=== PATIENT | female | born 1945 | race Caucasian/White ===

== ENCOUNTER → 2016-11-28 | Outpatient (CLI) | payer OTHER ==
[2016-11-28 12:32] LABS: Urine Bilirubin Negative (Negative); Urine Blood Negative /uL (Negative); Urine Color Yellow (Yellow); Urine Glucose Normal (Normal); Urine Ketone Negative (Negative); Urine Nitrite Negative (Negative); Urine Urobilinogen Normal (Negative)
[2016-11-28 12:36] LABS: Basophils # (auto) 0.1 uL; Basophils % (auto) 0.8 % (0.0-2.0); Eosinophils # (auto) 0.1 uL; Eosinophils % (auto) 1.5 % (0.0-7.0); Hematocrit 44.6 % (36.0-46.0); Hemoglobin 15.1 g/dL (12.2-16.2); Lymphocytes # (auto) 1.4 uL; Lymphocytes % (auto) 20.7 % (10.0-50.0); Mean Corpuscular Hemoglobin 30.5 pg (28.0-32.0); Mean Corpuscular Hgb Conc. 33.8 g/dL (32.0-36.0); Mean Corpuscular Volume 90.1 fL (80.0-100.0); Monocytes # (auto) 0.3 uL; Monocytes % (auto) 4.7 % (0.0-12.0); Neutrophils # (auto) 4.8 uL; Neutrophils % (auto) 72.3 % (37.0-80.0); Nucleated Red Blood Cells % 0.1 %; Platelet Count (auto) 410 10^3/uL (140-450); Red Cell Distribution Width 14.8 % (11.8-14.3); White Blood Cell 6.6 10^3/uL (4.4-10.8)
[2016-11-28 13:04] LABS: Albumin 4.2 g/dL (3.4-5.0); BUN/Creatinine Ratio 21.1; Bilirubin, Direct 0.2 mg/dL (0-0.2); Bilirubin, Total 0.5 mg/dL (0.2-1.0); Calcium 10.3 mg/dL (8.5-10.1); Total Protein 8.6 g/dL (6.4-8.2)
== END | disposition home or self-care (01) ==
LOC: LAB 08:25
PROVIDERS: ATTEND Internal Medicine Cardiovascular Disease
DX: I10 Essential (primary) hypertension (principal); E78.00 Pure hypercholesterolemia, unspecified; K74.1 Hepatic sclerosis; E11.9 Type 2 diabetes mellitus without complications; E03.9 Hypothyroidism, unspecified; D64.9 Anemia, unspecified; E55.9 Vitamin D deficiency, unspecified; N39.0 Urinary tract infection, site not specified
CPT/HCPCS: 36415; 80048; 80061; 80076; 81003; 82306; 83036; 84439; 84443; 85025; 87086

== ENCOUNTER → 2017-05-26 | Outpatient (CLI) | payer OTHER ==
[~2017-05-26] VITALS: Ht 170.2 cm; Wt 104.3 kg
== END | disposition home or self-care (01) ==
LOC: Rad HDHVI 09:21
PROVIDERS: ATTEND Internal Medicine Cardiovascular Disease
DX: I10 Essential (primary) hypertension (principal); E78.2 Mixed hyperlipidemia; E11.9 Type 2 diabetes mellitus without complications; E78.00 Pure hypercholesterolemia, unspecified
CPT/HCPCS: 78452; 93017; 93306; 96374; A9500

== ENCOUNTER → 2018-05-17 | Outpatient (CLI) | payer OTHER | END | disposition home or self-care (01) | LOC: Rad HDHVI 10:47 | PROVIDERS: ATTEND Internal Medicine Cardiovascular Disease | DX: I47.1 Supraventricular tachycardia (principal); E78.00 Pure hypercholesterolemia, unspecified; R00.2 Palpitations; I10 Essential (primary) hypertension | CPT/HCPCS: 93306 ==

== ENCOUNTER → 2018-05-21 | Outpatient (CLI) | payer OTHER ==
[~2018-05-21] VITALS: Ht 170.2 cm; Wt 90.7 kg
[2018-05-21 12:43] LABS: Basophils # (auto) 0 uL; Basophils % (auto) 0.6 % (0.0-2.0); Eosinophils # (auto) 0.2 uL; Eosinophils % (auto) 2.8 % (0.0-7.0); Hematocrit 43.9 % (36.0-46.0); Hemoglobin 14.7 g/dL (12.2-16.2); Lymphocytes # (auto) 1.1 uL; Lymphocytes % (auto) 16.4 % (10.0-50.0); Mean Corpuscular Hemoglobin 29.8 pg (28.0-32.0); Mean Corpuscular Hgb Conc. 33.5 g/dL (32.0-36.0); Mean Corpuscular Volume 89.1 fL (80.0-100.0); Monocytes # (auto) 0.4 uL; Monocytes % (auto) 5.8 % (0.0-12.0); Neutrophils % (auto) 74.4 % (37.0-80.0); Nucleated Red Blood Cells % 0.3 %; Platelet Count (auto) 394 10^3/uL (140-450); Red Blood Cells 4.92 10^6/uL (4.0-5.20); Red Cell Distribution Width 15.6 % (11.8-14.3); White Blood Cell 6.7 10^3/uL (4.4-10.8)
[2018-05-21 13:34] LABS: Free T4 (Free Thyroxine) 1.34 ng/dL (0.89-1.76)
[2018-05-21 13:46] LABS: Potassium 3.3 mmol/L (3.5-5.1)
[2018-05-21 14:02] LABS: Albumin 4.1 g/dL (3.4-5.0); BUN/Creatinine Ratio 21.5; Bilirubin, Total 1.2 mg/dL (0.2-1.0); Calcium 10.4 mg/dL (8.5-10.1); Total Protein 7.8 g/dL (6.4-8.2)
== END | disposition home or self-care (01) ==
LOC: Rad HDHVI 08:29
PROVIDERS: ATTEND Internal Medicine Cardiovascular Disease
DX: E11.9 Type 2 diabetes mellitus without complications (principal); E03.9 Hypothyroidism, unspecified; E55.9 Vitamin D deficiency, unspecified; D51.9 Vitamin B12 deficiency anemia, unspecified; I10 Essential (primary) hypertension; I47.1 Supraventricular tachycardia; E78.00 Pure hypercholesterolemia, unspecified
CPT/HCPCS: 36415; 78452; 80053; 80061; 82306; 82607; 83036; 84439; 84443; 85025; 93017; 96374; A9500; 87086

== ENCOUNTER → 2018-07-30 | Outpatient (CLI) | payer OTHER | END | disposition home or self-care (01) | LOC: Rad HDHVI 10:34 | PROVIDERS: ATTEND Internal Medicine Cardiovascular Disease | DX: I25.10 Atherosclerotic heart disease of native coronary artery without angina pectoris (principal); R07.9 Chest pain, unspecified | CPT/HCPCS: 71250 ==

== ENCOUNTER → 2019-01-30 | Outpatient (CLI) | payer OTHER | END | disposition home or self-care (01) | LOC: Rad HDHVI 09:54 | PROVIDERS: ATTEND Internal Medicine Cardiovascular Disease | DX: I67.82 Cerebral ischemia (principal); R51 Headache; R06.02 Shortness of breath; I10 Essential (primary) hypertension | CPT/HCPCS: 70450 ==

== ENCOUNTER → 2022-01-24 | Outpatient (CLI) | payer OTHER | END | disposition home or self-care (01) | LOC: Rad HDHVI 12:59 | PROVIDERS: ATTEND Internal Medicine Cardiovascular Disease | DX: I07.1 Rheumatic tricuspid insufficiency (principal); I10 Essential (primary) hypertension; R00.2 Palpitations | CPT/HCPCS: 93306 ==

== ENCOUNTER → 2022-02-01 | Outpatient (CLI) | payer OTHER ==
[~2022-02-01] VITALS: Ht 170.2 cm; Wt 86.2 kg
== END | disposition home or self-care (01) ==
LOC: Rad HDHVI 09:23
PROVIDERS: ATTEND Internal Medicine Cardiovascular Disease
DX: R07.89 Other chest pain (principal); R00.2 Palpitations; I10 Essential (primary) hypertension; E78.00 Pure hypercholesterolemia, unspecified; Z82.49 Family history of ischemic heart disease and other diseases of the circulatory system; Z79.899 Other long term (current) drug therapy
CPT/HCPCS: 78452; 93017; 96374; A9500

== ENCOUNTER 2023-09-13 09:04 | Emergency (ER) | payer OTHER ==
[~2023-09-13] VITALS: Ht 170.2 cm; Wt 83.7 kg
[2023-09-13 10:42] VITALS: BP 134/96; PULSE 107; RESP 16; TEMP 98.7; O2SAT 100
== END 2023-09-13 10:47 | disposition home or self-care (01) ==
LOC: ER 09:04
DX: M25.561 Pain in right knee (principal); I82.401 Acute embolism and thrombosis of unspecified deep veins of right lower extremity; I10 Essential (primary) hypertension; Z90.49 Acquired absence of other specified parts of digestive tract; Z90.710 Acquired absence of both cervix and uterus; Z88.0 Allergy status to penicillin; W01.0XXA Fall on same level from slipping, tripping and stumbling without subsequent striking against object, initial encounter; Y93.89 Activity, other specified; Y92.89 Other specified places as the place of occurrence of the external cause; Y99.8 Other external cause status
CPT/HCPCS: 93971

== ENCOUNTER → 2023-12-25 | Outpatient (CLI) | payer OTHER ==
[~2023-12-25] MED LIST: IOHEXOL 350 MG/ML 100ML IJ ONE
[2023-12-25 10:25] VITALS: BP 125/68; PULSE 93; RESP 18; O2SAT 95
[2023-12-25 10:39] VITALS: BP 135/65; PULSE 99; RESP 18; O2SAT 99
--- NOTE | 2023-12-25 11:46 | DVH ---
CLINICAL INFORMATION: 78 years old, Female; ABD PAIN. TECHNIQUE: Axial CT images of the abdomen and pelvis were obtained after the administration of 30 m L Omnipaque 300 IV contrast. The IV infiltrated during the injection and injection was stopped. There is no IV contrast reaching the systemic circulation on these images. Coronal and sagittal reformatte d images were obtained, reviewed, and stored. All CT scans at this medical facility are performed usi ng dose modulation techniques as appropriate to a performed exam including the following: Automated e xposure control was utilized; adjustment of the MA and/or KV according to patient size; and use of it erative reconstruction technique. CTDIvol = 7.73 mGy DLP = 394.09 mGy-cm COMPARISON: None FINDINGS: Lung bases: 8.5 mm nodule in the right lower lobe costophrenic sulcus. Lung bases are otherwise clear . Liver: Small low-attenuation lesions in the liver, some of which are too small to characterize. The larger lesions measuring up to 1.1 cm in greatest dimension measures slightly higher than simple flui d attenuation, possibly complex cysts or hemangiomas. Liver is enlarged, measuring up to 17.9 cm in c raniocaudal dimension at approximately the mid clavicular line. Biliary: Cholecystectomy. Common bile duct is mildly dilated, measuring up to 1 cm in diameter, whi ch may be seen after cholecystectomy. Spleen: Unremarkable. Pancreas: Grossly unremarkable in its noncontrast enhanced appearance. Adrenal glands: Unremarkable. No mass. Kidneys: No hydronephrosis. 2.8 cm cyst in the posterior aspect of the left kidney. Aorta/Vascular: Moderate atherosclerotic calcification. No abdominal aortic aneurysm. Retroperitoneum: No mass or lymphadenopathy. Bowel/mesentery: There are distended fluid-filled small bowel loops without visualized transition poi nt to suggest small bowel obstruction. Appendix is not visualized. Moderate stool in the colon. Pelvic organs: Uterus is surgically absent. Bladder: Unremarkable. No mass. Abdominal wall: No mass or hernia. Bones: No acute fracture or focal intraosseous lesion. IMPRESSION: 1. IV infiltrated during the injection . No contrast reached to the systemic circulation for the exa mination. 2. Dilated fluid-filled small bowel loops with no transition point demonstrated to suggest small bonilla l obstruction. Findings may be due to ileus or enteritis in the appropriate clinical setting . 3. Postsurgical changes of prior cholecystectomy . Common bile duct is mildly dilated , which may be seen after cholecystectomy due to reservoir effect. Correlate with clinical findings. 4. Moderate stool in the colon . 5. 8.5 mm nodule in the right lower lobe costophrenic sulcus. Recommend dedicated CT chest to further evaluate. 6. Hepatomegaly. Small liver lesions, some of which are too small to characterize. The larger lesion s measures slightly higher than simple fluid attenuation, possibly complex cysts or hemangiomas. None mergent liver mass protocol MRI could be obtained if clinically indicated. 7. Additional findings as detailed above.
--- NOTE | 2023-12-25 11:46 | DVH ---
XY CHEST TWO VIEWS ROUTINE CLINICAL HISTORY: SOB COMPARISON: CS2 on DOS: 11/22/21 TECHNIQUE: Frontal and lateral view of the chest was obtained FINDINGS: Lines and Tubes: None Lungs: No focal consolidation. Pleura: No effusion. No pneumothorax. Cardiomediastinal contours: Unremarkable Bones: No acute osseous abnormality. IMPRESSION: No acute cardiopulmonary disease.
== END | disposition home or self-care (01) ==
LOC: Rad HDHVI 10:11
PROVIDERS: ATTEND Internal Medicine Cardiovascular Disease
DX: R16.0 Hepatomegaly, not elsewhere classified (principal); K76.89 Other specified diseases of liver; R91.1 Solitary pulmonary nodule; R06.02 Shortness of breath; R10.9 Unspecified abdominal pain; R63.4 Abnormal weight loss; Z90.49 Acquired absence of other specified parts of digestive tract
CPT/HCPCS: 71046; 74177; G0463; Q9967

== ENCOUNTER → 2024-01-15 | Outpatient (CLI) | payer OTHER | END | disposition home or self-care (01) | LOC: Rad HDHVI 09:02 | PROVIDERS: ATTEND Internal Medicine Cardiovascular Disease | DX: I10 Essential (primary) hypertension (principal) | CPT/HCPCS: 93880 ==

== ENCOUNTER → 2024-01-17 | Outpatient (CLI) | payer OTHER ==
--- NOTE | 2024-01-18 12:26 | DVHSR ---
APPROVED REPORT EXAM: Two-dimensional and M-mode echocardiogram with Doppler and color Doppler. DIMENSIONS LVDd3.7 (3.8-5.7cm)LA (2D)3.8 (1.9-4.0cm)Aortic Root3.7 (2.0-3.7cm) LVDs2.6 (2.5-4.0cm)LA (MM) (1.9-4.0cm)Aortic Cusp Exc1.8 (1.5-2.0cm) EF (%) 56.0 (55-70%)Rt. Atrium3.6 (1.9-4.0cm)Asc. Aorta cm IVSd1.2 (0.7-1.1cm)RV (D)3.4 (1.8-2.4cm) PWd1.1 (0.7-1.1cm) Mitral Valve MitralMitral Stenosis E wave0.65m/sMV Mean GR.mmHg A wave0.83m/sMV Peak GR.mmHg E/A ratio0.82D MVAcm2 DECEL [id number] 1/2 Timems Aortic Valve Aortic ValveAortic Stenosis V10.99m/Robi Mean GR.3mmHg V21.20m/Robi Peak GR.6mmHg LVOT Diameter1.8 (1.8-2.4cm)Doppler AVA2.10cm2 Pulmonic Valve V20.94m/s Tricuspid Valve TR Velocity2.85m/s [id number] LEFT VENTRICLE The left ventricle is normal size. The left ventricle is normal in structure and function. The Ejection Fraction is within normal limits. RIGHT VENTRICLE The right ventricle is normal size. ATRIA The left atrial size is normal. The right atrium size is normal. The interatrial septum is intact with no evidence for an atrial septal defect. MITRAL VALVE The mitral valve is normal in structure. Mitral annular calcification is mild. There is no mitral valve regurgitation noted. PULMONIC VALVE The pulmonic valve is not well visualized. TRICUSPID VALVE The tricuspid valve is grossly normal. There is trace to mild tricuspid regurgitation. Right ventricular systolic pressure is 30-40 mmHg. AORTIC VALVE The aortic valve opens well. No aortic regurgitation is present. GREAT VESSELS The aortic root is normal size. PERICARDIAL EFFUSION There is no pericardial effusion. Other Information Technically limited study due to body habitus. Conclusion EF 55% MILD MAC
== END | disposition home or self-care (01) ==
LOC: Rad HDHVI 09:49
PROVIDERS: ATTEND Internal Medicine Cardiovascular Disease
DX: I08.1 Rheumatic disorders of both mitral and tricuspid valves (principal); R06.02 Shortness of breath; I10 Essential (primary) hypertension
CPT/HCPCS: 93306

== ENCOUNTER 2024-07-16 09:28 | Outpatient (CLI) | payer OTHER ==
[2024-07-16 09:48] VITALS: BP 121/71; PULSE 107; RESP 16; O2SAT 96
[2024-07-16] MEDS ORDERED: IOHEXOL 350 MG/ML 100ML IJ ONE (09:48)
[2024-07-16 10:05] VITALS: BP 148/81; PULSE 109; RESP 16; O2SAT 96
--- NOTE | 2024-07-16 12:53 | DVH ---
Exam: CT CT AB PELVIS W WO CON-IV ONLY History: LIVER NODULE Comparison Study: CT CT AB PEL WITH IV CON ONLY on DOS: 12/25/23 TECHNIQUE: Multidetector CT of the abdomen was performed from lung bases to pubic symphysis. Imaging was performed without IV contrast. Axial, coronal and sagittal multiplanar reformats were obtained fr om the axial data set by the technologist. Radiation Dose Information: CT Dose: CTDI volume is 7.96 mGy. Dose-length product is 908.75 mGy*cm FINDINGS: Evaluation of solid organs is limited due to lack of intravenous contrast use. Findings: Lung Bases: No acute or significant lung base finding. Normal heart size. No pleural or pericardial effusion. Liver: Hepatic steatosis. Numerous low-density lesions which are too small to characterize. There is intrahepatic and extrahepatic ductal dilatation, likely secondary to cholecystectomy, however MRCP. Gallbladder and Biliary Tree: Unremarkable Spleen: Spleen is enlarged measuring 13 cm. Pancreas: The pancreas is grossly normal in appearance. Adrenal Glands: Unremarkable Kidneys: Kidneys are grossly normal without calculi or hydronephrosis. Bladder: Grossly unremarkable for degree of distention. Bowel: The stomach is grossly normal in appearance. Small bowel and colon are normal in caliber and d istribution. The appendix is not visualized; however, no secondary findings of acute appendicitis id entified. Ascites: Absent Lymphadenopathy: No mesenteric, retroperitoneal or periportal lymphadenopathy. Abdominal Wall and Mesentery: Unremarkable. Vasculature: The visualized abdominal aorta is normal in size and caliber. Evaluation of abdominal a nd pelvic vessels is limited due to lack of intravenous contrast. Pelvic Organs: Unremarkable Musculoskeletal: No aggressive focal bony lesions, acute fractures or dislocation. Soft tissues: Unremarkable IMPRESSION: Hepatic steatosis. Numerous low-density lesions which are too small to characterize. There is intrah epatic and extrahepatic ductal dilatation, likely secondary to cholecystectomy, however MRCP. Radiation optimization: All CT scans at this facility use at least one of these dose optimization maryjo hniques: automated exposure control mA and/or kV adjustment per patient size (includes targeted exam s where dose is matched to clinical indication) or iterative reconstruction.
== END 2024-07-16 17:00 | disposition home or self-care (01) ==
LOC: Rad HDHVI 09:28
PROVIDERS: ATTEND Internal Medicine Cardiovascular Disease
DX: K76.0 Fatty (change of) liver, not elsewhere classified (principal); R16.1 Splenomegaly, not elsewhere classified
CPT/HCPCS: 74178; G0463; Q9967

== ENCOUNTER 2024-09-24 10:08 | Emergency (ER) | payer OTHER, MEDICARE ==
[~2024-09-24] VITALS: Ht 170.2 cm; Wt 81.0 kg
--- NOTE | 2024-09-24 10:25 | ED.PDOC ---
History of Present Illness HPI Comments This 79-year-old female with past medical history of hypertension, constipation presented to the ED with a chief complaint of right upper extremity pain and erythema since yesterday prior to this visit. The patient stated that she was working in the garden and suddenly she felt painful muscle cramp and bruised in the right upper arm. She denies fever, chills, right upper extremity weakness, abdominal pain, dysuria, hematuria any changes in bowel habit. PCP: Dr. Cerrato Chief Complaint: Upper Extremity Time Seen by MD: 10:12 Primary Care Provider: YONG Allergies: Coded Allergies: Penicillins (Verified Allergy, Unknown, 11/02/15) Information Source: Patient Mode of Arrival: Ambulatory Severity: Mild Timing: Hours Duration: Since onset Prehospital treatment: None Past Medical History PAST MEDICAL HISTORY: HTN Surgical History: Cholecystectomy, Hysterectomy, Tonsillectomy [employer] History: Denies all [employer]ER Hx Family History Family History: Reviewed,noncontributory to illness Social History Smoker: Non-Smoker Alcohol: Denies ETOH Use Drugs: Denies Drug Use Lives In: Home Physical Exam General Appearance: No Apparent Distress, Normal HEENT: Normal ENT Inspection, Pharynx Normal, TMs Normal Neck: Full Range of Motion, Non-Tender, Normal, Normal Inspection Respiratory: Chest Non-Tender, Lungs Clear, No Accessory Muscle Use, No Respiratory Distress, Normal Breath Sounds Cardiovascular: No Edema, No JVD, No Murmur, No Gallop, Normal Peripheral Pulses, Regular Rate/Rhythm Breast Exam: Deferred Gastrointestinal: No Organomegaly, Non Tender, No Pulsatile Mass, Normal Bowel Sounds, Soft Genitalia: Deferred Pelvic: Deferred Rectal: Deferred Extremities: No calf tenderness, Normal range of motion, No pedal edema, Other (Right upper arm tenderness) Neurologic: Alert, data integrity consultant II-XII nml as Tested, No Motor Deficits, Normal Affect, Normal Mood, No Sensory Deficits Cerebellar Function: NOT DONE Reflexes: NOT DONE Skin: NOT DONE Peripheral Pulses: 2+ carotid (R), 2+ carotid (L), 2+ femoral (R), 2+ femoral (L), 2+ dorsalis pedis (R), 2+ dorsalis pedis (L), 2+ Radial (R), 2+ Radial (L), 2+ Brachial (R), 2+ Brachial (L) Lymphatic: NOT DONE Was a procedure done? Was a procedure done?: No Differential Dx Considerations may include: DVT, biceps tendon rupture, muscle spasm, dehydration, hypercalcemia X-Ray, Labs, Meds, VS Vital Signs Date Time Temp Pulse Resp B/P (MAP) Pulse Ox O2 Delivery O2 Flow Rate FiO2 09/24/24 10:09 98.5 110 16 151/79 97 98.5 Lab Test 09/24/24 11:39 Range/Units White Blood Count 7.1 4.4-10.8 10^3/uL Red Blood Count 4.97 4.0-5.20 10^6/uL Hemoglobin 15.7 12.2-16.2 g/dL Hematocrit 46.3 H 36.0-46.0 % Mean Corpuscular Volume 93.2 80.0-100.0 fL Mean Corpuscular Hemoglobin 31.6 28.0-32.0 pg Mean Corpuscular Hemoglobin Concent 33.9 32.0-36.0 g/dL Red Cell Distribution Width 14.8 H 11.8-14.3 % Platelet Count 403 140-450 10^3/uL Mean Platelet Volume 7.5 6.9-10.8 fL Neutrophils (%) (Auto) 79.7 37.0-80.0 % Lymphocytes (%) (Auto) 12.3 10.0-50.0 % Monocytes (%) (Auto) 6.3 0.0-12.0 % Eosinophils (%) (Auto) 1.4 0.0-7.0 % Basophils (%) (Auto) 0.3 0.0-2.0 % Neutrophils # (Auto) 5.7 1.6-8.6 10 ^3/uL Lymphocytes # (Auto) 0.9 0.4-5.4 10 ^3/uL Monocytes # (Auto) 0.4 0-1.3 10 ^3/uL Eosinophils # (Auto) 0.1 0-0.8 10 ^3/uL Basophils # (Auto) 0 0-0.2 10 ^3/uL Nucleated Red Blood Cells 0.1 % Sodium Level 136 136-145 mmol/L Potassium Level 3.7 3.5-5.1 mmol/L Chloride Level 99 98-107 mmol/L Carbon Dioxide Level 26 20-31 mmol/L Anion Gap 11 5-15 Blood Urea Nitrogen 18 9-23 mg/dL Creatinine 0.81 0.550-1.02 mg/dL Glomerular Filtration Rate Calc 73 >90 mL/min BUN/Creatinine Ratio 22.2 H 10.0-20.0 Serum Glucose 97 74-106 mg/dL Calcium Level 11.0 H 8.7-10.4 mg/dL X-Ray, Labs, Meds, VS Comment CBC showed hemo concentration, BNP was unremarkable and serum calcium is mildly elevated 11 Images Reviewed?: Images reviewed and evaluated by me Time of 1ST Reevaluation: 13:40 Reevaluation 1ST: Improved Patient Education/Counseling: Diagnosis, Treatment Family Education/Counseling: No Family Present Comments This is 79-year-old female presented to the ER with a complaint of right upper arm pain and erythema since yesterday. Initial physical examination revealed erythema and tenderness in the right biceps. Doppler scan of the right upper extremity ruled out DVT CBC demonstrated hemo concentration, BMP was unremarkable and serum calcium was mildly elevated at 11 The patient was given normal saline 500 mL IV bolus. Discussed the test results with the patient and mentioned it will take at least 2 weeks to resolve the erythema and advised to take pain meds as needed for the muscular pain. Advised to follow up with PCP in 1 week SEPSIS Sepsis Screen Date sepsis recognized/suspect: Sep 24, 2024 Time Sepsis recognized/suspect: 1012 Recent Procedure: No On Antibiotic Therapy: No Respiratory Rate >20: No Heart Rate >90: Yes Temp<36 C (96.8 F) or >38.3 C: No SBP <90 or MAP <65 mmHG: No New Acute Mental Status Change: No Is the patient on CPAP, BIPAP,: No Physician Orders Rt Upper Dvt (09/24/24 10:22) Urinalysis (09/24/24 10:22) Sodium Chloride 0.9% (09/24/24 13:15) Vital Signs Date Time Temp Pulse Resp B/P (MAP) Pulse Ox O2 Delivery O2 Flow Rate FiO2 09/24/24 10:09 98.5 110 16 151/79 97 98.5 Laboratory Tests Test 09/24/24 11:39 White Blood Count 7.1 10^3/uL (4.4-10.8) Departure 1 Departure Time of Disposition: 13:47 Impression: Primary Impression: Muscle strain Additional Impression: Dehydration Disposition: 01 HOME / SELF CARE / HOMELESS Condition: Fair Critical Care Note Critical Care Time?: No Stability Stability form required: CALLUM Stack RESIDENT Sep 24, 2024 10:25
--- NOTE | 2024-09-24 11:30 | DVH ---
RIGHT Upper Extremity Venous Duplex Clinical History: Painful erythema of the right upper arm Comparison: US CAROTID DUPLX W COLOR DOP on DOS: 01/15/24, US RT LOWER DVT on DOS: 09/13/23, CAROTID DU PLX W COLOR DOP on DOS: 01/30/19 Technique: Duplex Doppler evaluation of the venous system of the RIGHT lower neck and upper extremity including color Doppler and spectral/pulsed waveform analysis was performed. Findings: The internal jugular vein demonstrates appropriate compressibility and waveform variability. The subclavian vein is patent on color Doppler evaluation without intraluminal thrombus and demonstra antoine waveform variability. The visualized portion of the brachiocephalic vein is patent on color Doppler evaluation without intr aluminal thrombus and demonstrates waveform variability. The axillary vein demonstrates appropriate compressibility and waveform variability. The brachial veins demonstrate appropriate compressibility and patency on Doppler evaluation. The basilic vein demonstrates appropriate compressibility and patency on Doppler evaluation. The cephalic vein demonstrates appropriate compressibility and patency on Doppler evaluation. Impression: No venous thrombus identified in the RIGHT upper extremity vessels evaluated above.
[2024-09-24 12:12] LABS: Hematocrit 46.3 % (36.0-46.0); Hemoglobin 15.7 g/dL (12.2-16.2); Mean Corpuscular Hemoglobin 31.6 pg (28.0-32.0); Mean Corpuscular Volume 93.2 fL (80.0-100.0); Nucleated Red Blood Cells % 0.1 %
[2024-09-24 12:13] LABS: Chloride 99 mmol/L (98-107); Potassium 3.7 mmol/L (3.5-5.1); Sodium 136 mmol/L (136-145)
[2024-09-24 12:14] LABS: Anion Gap 11 (5-15); Carbon Dioxide 26 mmol/L (20-31)
[2024-09-24 12:19] LABS: BUN/Creatinine Ratio 22.2 (10.0-20.0); Blood Urea Nitrogen 18 mg/dL (9-23); Glucose 97 mg/dL (74-106)
[2024-09-24 12:20] LABS: Calcium 11.0 mg/dL (8.7-10.4)
[2024-09-24] MEDS: SODIUM CHLORIDE 0.9% 500 ML IV ONE (14:17)
[2024-09-24 14:18] VITALS: BP 116/75; PULSE 99; RESP 18; TEMP 98.3; O2SAT 96
== END 2024-09-24 14:20 | disposition home or self-care (01) ==
LOC: ER 10:08
DX: S46.911A Strain of unspecified muscle, fascia and tendon at shoulder and upper arm level, right arm, initial encounter (principal); E86.0 Dehydration; I10 Essential (primary) hypertension; Z90.710 Acquired absence of both cervix and uterus; Z90.49 Acquired absence of other specified parts of digestive tract; Z88.0 Allergy status to penicillin; X58.XXXA Exposure to other specified factors, initial encounter; Y93.89 Activity, other specified; Y92.89 Other specified places as the place of occurrence of the external cause; Y99.8 Other external cause status
CPT/HCPCS: 36415; 80048; 85025; 93971

== ENCOUNTER 2024-09-27 11:23 | Outpatient (CLI) | payer OTHER, MEDICARE ==
--- NOTE | 2024-09-27 14:28 | DVH ---
COMPUTERIZED TOMOGRAPHY OF THE CERVICAL SPINE, NONCONTRAST REASON FOR EXAM: NECK PAIN COMPARISON: CERVICAL WITHOUT CONTRAST on DOS: 11/22/21, CAROTID DUPLX W COLOR DOP on DOS: 01/30/19 TECHNIQUE: CT of the entire cervical spine was performed in routine fashion with sagittal and guerrero l reconstructions. Soft tissues and bone windows were filmed. Radiation optimization: All CT scans a t this facility use at least one of these dose optimization techniques: Automated exposure control mA and/or kV adjustment per patient size (includes targeted exams where dose is matched to clinical ind ication) or iterative reconstruction. RADIATION DOSE: CTDI: 13.14 mGy DLP: 278 mGy-cm FINDINGS: The vertebral bodies are normal in height and alignment with no evidence of fracture. The re is no listhesis. There is straightening of the normal cervical lordosis which may be secondary to patient positioning or muscular spasm. There is severe disc height loss at C6-C7 with endplate hypert rophy. There is moderate disc height loss throughout the remainder of the cervical spine. There is se diane facet joint narrowing with hypertrophy throughout the cervical spine. The visualized lung apices are grossly clear. The prevertebral soft tissues are within normal limits. No pathologic lymphadenop athy is identified by size criteria. There is a 1.5 cm hypoenhancing nodule in the right lobe of the thyroid that was not present on the prior study. IMPRESSION: No evidence of cervical spine fracture or subluxation. Moderate and severe degenerative changes as described above. Consider cervical spine MRI to better ev aluate any non bony neural foraminal or spinal canal stenosis. There is straightening of the normal cervical lordosis which may be secondary to patient positioning or muscular spasm. New 1.5 cm right thyroid nodule. Thyroid ultrasound is recommended.
== END 2024-09-27 17:00 | disposition home or self-care (01) ==
LOC: Rad HDHVI 11:23
PROVIDERS: ATTEND Internal Medicine Cardiovascular Disease
DX: M47.812 Spondylosis without myelopathy or radiculopathy, cervical region (principal); M48.02 Spinal stenosis, cervical region; M54.2 Cervicalgia; E04.1 Nontoxic single thyroid nodule
CPT/HCPCS: 72125

== ENCOUNTER 2024-11-05 08:47 | Outpatient (CLI) | payer OTHER ==
[2024-11-05 09:02] VITALS: BP 133/74; PULSE 108; RESP 20; O2SAT 97
[2024-11-05 09:20] VITALS: BP 137/66; PULSE 106; RESP 20; O2SAT 97
[2024-11-05] MEDS ORDERED: CHOL100047 PO (10:50)
[2024-11-05] MEDS ORDERED: LINA145C OR (10:50)
[2024-11-05] MEDS ORDERED: TRIA75TA11 PO (10:50)
[2024-11-05] MEDS ORDERED: ASPI81CH74 PO (10:50)
[2024-11-05] MEDS ORDERED: ASCO100076 PO (10:50)
[2024-11-05] MEDS ORDERED: ZOLP10TA6 PO (10:50)
== END 2024-11-05 17:00 | disposition home or self-care (01) ==
LOC: CHF HDHVI 08:47
PROVIDERS: ATTEND Internal Medicine Cardiovascular Disease
DX: Z01.810 Encounter for preprocedural cardiovascular examination (principal); R00.1 Bradycardia, unspecified
CPT/HCPCS: 93005; G0463

== ENCOUNTER 2024-11-07 07:04 | Day surgery (SDC) | payer MEDICARE, OTHER ==
[2024-11-05 11:45] LABS: Hematocrit 44.4 % (36.0-46.0); Hemoglobin 15.4 g/dL (12.2-16.2); Mean Corpuscular Hemoglobin 31.6 pg (28.0-32.0); Mean Corpuscular Volume 91.3 fL (80.0-100.0); Nucleated Red Blood Cells % 0.1 %
[2024-11-05 11:52] LABS: INR 1.03 (0.9-1.15); Partial Thromboplastin Time 27.6 SEC (24.5-34.5); Prothrombin Time 10.9 sec (9.3-11.8)
[2024-11-05 12:04] LABS: Chloride 100 mmol/L (98-107); Potassium 3.7 mmol/L (3.5-5.1); Sodium 139 mmol/L (136-145)
[2024-11-05 12:05] LABS: Anion Gap 12 (5-15); Carbon Dioxide 27 mmol/L (20-31)
[2024-11-05 12:10] LABS: BUN/Creatinine Ratio 22.0 (10.0-20.0); Blood Urea Nitrogen 18 mg/dL (9-23); Glucose 91 mg/dL (74-106)
[2024-11-05 12:11] LABS: Calcium 10.9 mg/dL (8.7-10.4)
[~2024-11-07] VITALS: Ht 170.2 cm; Wt 81.6 kg
[2024-11-07] VITALS (9 sets, daily range): BP systolic 107–129; BP diastolic 60–75; PULSE 70–86; RESP 12–17; TEMP 97.8; O2SAT 92–95
[~2024-11-07 07:04] MED LIST changes: +ASCO100076 PO; +ASPI81CH74 PO; +CHOL100047 PO; -IOHEXOL 350 MG/ML 100ML IJ ONE; +LINA145C OR; +TRIA75TA11 PO; +ZOLP10TA6 PO
[2024-11-07] MEDS ORDERED: IODIXANOL 320MG/ML 100ML BTL IV ONE (08:43)
[2024-11-07] MEDS ORDERED: ANGIOMAX 250 MG VIAL IV ONE (09:29)
[2024-11-07] MEDS ORDERED: fentaNYL CITRATE 100 MCG/2 ML VL ONE (09:30)
[2024-11-07] MEDS ORDERED: SODIUM CHL 0.9% 0 ML ONE (09:30)
[2024-11-07] MEDS ORDERED: MIDAZOLAM HCL 2MG/2ML 2ml VIAL (1mg/ml) ONE (09:30)
[2024-11-07] MEDS ORDERED: LIDOCAINE 2%HCL (LOCAL ANESTH.) INJ 20ML MDV ONE (09:31)
[2024-11-07] MEDS ORDERED: IOHEXOL 350 MG/ML 100ML IJ ONE (09:50)
--- NOTE | 2024-11-07 10:49 | DVHOP ---
DATE OF SURGERY: 11/07/2024 PROCEDURES PERFORMED: Left and right subclavian angiography. Left and right brachial angiography. PROCEDURE: The patient was prepped and draped in sterile condition. 1% Xylocaine used to anesthetize the right groin, scope into right femoral artery was engaged with Seldinger technique, a 6-Swedish sheath right femoral artery. Using 6-Swedish JR4 diagnostic catheter, selective left and right subclavian and brachial angiography was performed. There were no complications. The patient tolerated the procedure well. RESULTS: Left and right subclavian without any flow restrictive lesion, left and right brachial without any flow restrictive lesion, left proximal internal common carotid artery without any flow restrictive lesion. Left vertebral proximal segment without any flow restrictive lesion. Right carotid proximal segment without any flow restrictive lesion. Right vertebral without any flow restrictive lesion. CONCLUSION: At this time, the patient with no evidence for any left subclavian steal syndrome. Both left and right subclavian arteries were patent without any flow restrictive lesion. Saqib Shea MD SA/KATY/DENAE TID: [id number] RECEIPT: [id number]
--- NOTE | 2024-11-07 11:40 | DVHOP ---
DATE OF SURGERY: 11/07/2024 PROCEDURES PERFORMED: * Selective left and right coronary angiography. * Ventriculogram. * DESCRIPTION OF PROCEDURE: The patient was prepped and draped under sterile conditions. 1% Xylocaine was used to anesthetize the right groin. Using a Cook needle, right femoral artery was engaged. Using Seldinger technique, a 6-St Helenian sheath was placed in the right femoral artery. Using a 6-St Helenian JL4 catheter and 6-St Helenian JR4 catheter, selective left and right coronary angiographies were performed. Using a 6-St Helenian pigtail catheter, ventriculogram was performed. The patient also received conscious sedation during the course of the procedure. RESULTS: * The patient's left main aneurysmal. No flow restrictive lesion. * Left anterior descending artery, once again, aneurysmal. Slow sluggish flow, JULES grade 2. No flow restrictive lesions. * Circumflex, similarly, aneurysmal. Slow JULES 2 flow with no flow restrictive lesion. 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 * Left ventricular function was preserved with an estimated EF of 50% and LVEDP of 12 mmHg with no gradient across the aortic valve. Thus, the patient had aneurysmal coronary anatomy; however, no flow restrictive lesions were noted. The patient now to undergo subclavian angiography because the patient had significant differential in the subclavian blood pressure in both arteries and the patient has been having left arm pain. Ultrasound showed the patient to have possible left subclavian steal syndrome subclavian angiography. Saqib Shea MD SA/ACACIA TID: [id number] RECEIPT: [id number]
== END 2024-11-07 12:38 | disposition home or self-care (01) ==
LOC: CATH 07:04
PROVIDERS: ATTEND Internal Medicine Cardiovascular Disease
DX: G45.8 Other transient cerebral ischemic attacks and related syndromes (principal); I25.41 Coronary artery aneurysm; I72.8 Aneurysm of other specified arteries; Z79.899 Other long term (current) drug therapy; Z90.710 Acquired absence of both cervix and uterus; Z98.890 Other specified postprocedural states; Z88.0 Allergy status to penicillin
CPT/HCPCS: 36222; 36225; 36415; 75716; 80048; 85025; 85610; 85730; 93454; C1760; C1769; C1894; J1644; J2250; J3010; Q9967; 93458; 99152